=== PATIENT | female | born 1975 | race Native Hawaiian/Other Pacific Islander ===

== ENCOUNTER 2021-01-01 11:51 | Emergency (ER) | payer OTHER ==
[2021-01-01] MEDS ORDERED: IBUPROFEN 800 MG TAB PO ONE (12:04)
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
[2021-01-01] MEDS ORDERED: CYCLOBENZAPRINE 10 MG TAB PO ONE (13:52)
[2021-01-01] MEDS ORDERED: HYDROcodone/ACETAMINOPHEN 5-325 MG TAB PO ONE (13:52)
[2021-01-01 15:11] VITALS: BP 121/89
== END 2021-01-01 15:17 | disposition home or self-care (01) ==
LOC: ED 11:51
DX: S80.02XA Contusion of left knee, initial encounter (principal); M79.18 Myalgia, other site; V89.2XXA Person injured in unspecified motor-vehicle accident, traffic, initial encounter; Y93.89 Activity, other specified; Y92.488 Other paved roadways as the place of occurrence of the external cause; Y99.8 Other external cause status
CPT/HCPCS: 72040; 73521; 99283